=== PATIENT | male | born 1990 | race Caucasian/White ===

== ENCOUNTER 2021-09-06 23:44 | Emergency (ER) | payer OTHER, SELFPAY ==
[2021-09-06 23:51] VITALS: BP 129/93; PULSE 94; RESP 20; TEMP 36.9; O2SAT 98
--- NOTE | 2021-09-07 00:11 | ED.DENTAL ---
HPI - Dental/Oral General Chief complaint: Dental/Oral Stated complaint: Tooth Ache Source: patient Mode of arrival: ambulatory Limitations: no limitations History of Present Illness HPI Narrative: Patient was diagnosed with a dental abscess and started on penicillin VK, started his dose yesterday and currently is having some redness erythema around his right eye that is itchy, advised to discontinue the pen VK, currently there is no shortness of breath no audible wheezing no fever chills no nausea vomiting no abdominal pain no conjunctival erythema or drainage Complaint: tooth pain Onset (ago): day(s) Severity: mild Relieving factors: nothing Exacerbating factors: nothing Associated symptoms: gum swelling Related Data Home Medications Medication Instructions Recorded Confirmed hydrocodone-acetaminophen 1 tablet PO PRN PRN 09/06/21 09/06/21 ibuprofen 800 mg PO TID 09/06/21 09/06/21 metformin 500 mg PO BID 09/06/21 09/06/21 penicillin V potassium 500 mg PO QID 09/06/21 09/06/21 Allergies Allergy/AdvReac Type Severity Reaction Status Date / Time No Known Allergies Allergy Verified 09/06/21 23:51 Review of Systems Review of Systems: All systems reviewed & are unremarkable except as noted in HPI and below PMFSH Past Medical History Medical History Diabetes mellitus Exam Const: General: no acute distress Orientation/consciousness: patient oriented x3 HENMT: Head: normal to inspection Eyes: Conjunctivae: conjunctivae normal Pupils: Equal, round and reactive pupils present EOM: EOMs intact bilaterally Neck: Neck: normal visual inspection, no lymphadenopathy and no meningeal signs Chest: Chest palpation & inspection: normal inspection of the chest Resp: Effort & Inspection: normal respiratory effort Cardio: Rate: regular rate Rhythm: regular rhythm GI: GI Palp: Yes Soft to palpation Percussion: Yes normal to percussion Urinary Catheter: Urinary Catheter: patent and draining Back/Spine/Pelvis: Back: no CVA tenderness Skin: Other: redness and swelling around his right eye Neuro: General: patient oriented x3 and moves all extremities Extrem: General: normal to inspection and edema Psych: Mental Status: mental status grossly normal Affect: normal affect Course Course Emergency Course: IV started patient received a dose of IV clindamycin and IV Toradol. Vital Signs Vital signs: Vital Signs Temperature 36.9 C 09/06/21 23:51 Pulse Rate 94 09/06/21 23:51 Respiratory Rate 20 09/06/21 23:51 Blood Pressure 129/93 H 09/06/21 23:51 Pulse Oximetry 98 09/06/21 23:51 Temperature 36.9 C 09/06/21 23:51 Pulse Rate 94 09/06/21 23:51 Respiratory Rate 20 09/06/21 23:51 Blood Pressure 129/93 H 09/06/21 23:51 Pulse Oximetry 98 09/06/21 23:51 Critical Care Time Critical Care Time Critical Care Time: No Discharge Plan Discharge Clinical Impression: Dental abscess, Cellulitis and abscess of face Patient Disposition: Home, Self-Care Condition: Stable Instructions: Antibiotic Form, Dental Abscess (ED), Cellulitis (ED) Additional Instructions: advised to discontinue penicillin, take medicine as prescribed and follow up with primary if symptoms persist or worsen. Prescriptions: New clindamycin HCl 300 mg capsule 300 mg PO Q6H 10 Days Qty: 40 RF: 0 tramadol [Ultram] 50 mg tablet 50 mg PO Q6H PRN (Reason: pain) Qty: 20 RF: 0 No Action metformin 500 mg tablet 500 mg PO BID RF: 0 ibuprofen 800 mg tablet 800 mg PO TID RF: 0 hydrocodone-acetaminophen 5-325 mg tablet 1 tablet PO PRN PRN (Reason: Pain) RF: 0 penicillin V potassium 500 mg tablet 500 mg PO QID RF: 0 Follow-up/Referrals: Cintia,SARWAT Pan [Primary Care Provider] - Stand Alone Forms: Work/School Release IP Time of Disposition: 00:17
[2021-09-07] MEDS: KETOROLAC 30 MG/ML VIAL (*BKC) IV PUSH (00:25)
[2021-09-07] MEDS: CLINDAMYCIN 600 MG/D5W 50 ML 600 MG/50 ML PIGGYBACK 100 MG IVPB (00:25)
[2021-09-07 01:05] VITALS: BP 109/82; PULSE 79; RESP 18; TEMP 36.8; O2SAT 97
== END 2021-09-07 01:15 | disposition home or self-care (01) ==
PROVIDERS: Emergency Provider Emergency Medicine; PCP Physician Assistant
DX: K04.7 Periapical abscess without sinus (principal); L03.211 Cellulitis of face
CPT/HCPCS: 96365; 96375; 99284; J1885

== ENCOUNTER 2022-03-11 17:07 | Emergency (ER) | payer OTHER, SELFPAY ==
--- NOTE | ~2022-03-11 | XR_ITS ---
EXAMINATION: XR chest 1V portable Exam Date/Time: 03/11/2022 19:20 [employer] HISTORY: cough, fever Comparison: None available. RESULT: Lines, tubes, and devices: None. Lungs and pleura: Low lung volumes with crowding. Ill-defined hazy left lower lung opacities. Cardiomediastinal silhouette: Normal. Other: No acute osseous or upper abdominal finding. IMPRESSION: Left lower lung opacities may reflect atelectasis or consolidation. Reviewed, dictated and finalized at location K. [employer]
[2022-03-11 18:40] VITALS: BP 119/73; PULSE 109; RESP 20; TEMP 38.8; O2SAT 98
[2022-03-11] MEDS: IBUPROFEN 400 MG TABLET PO (18:53)
--- NOTE | 2022-03-11 19:17 | ED.GENADULT ---
HPI - General Adult General Chief complaint: Upper Respiratory Infection Stated complaint: fever Time Seen by Provider: 03/11/22 18:44 History of Present Illness HPI narrative: Adeel is a 32M with a PMH of diabetes that presented to the ED with a sore throat, cough, fevers, chills, aches and some dyspnea. It started this morning and has become worse. He reportedly has a co-oworker with COVID. There is no CP, vomiting or lightheadedness. Related Data Allergies Allergy/AdvReac Type Severity Reaction Status Date / Time No Known Allergies Allergy Verified 03/11/22 18:51 Review of Systems Review of Systems: All systems reviewed & are unremarkable except as noted in HPI and below PMFSH Past Medical History Medical History Diabetes mellitus Exam Const: General: healthy appearing Nutritional Appearance: well nourished Orientation/consciousness: patient oriented x3 HENMT: Head: normal to inspection Ears: external ears normal Face/Nose/Sinus: Normal external nose present Eyes: Conjunctivae: conjunctivae normal Pupils: Equal, round and reactive pupils present Neck: Neck: normal visual inspection Chest: Chest palpation & inspection: normal inspection of the chest Resp: Effort & Inspection: normal respiratory effort Other: Diffuse wheezing. Cough present on exam. Cardio: Rate: regular rate Rhythm: regular rhythm GI: Inspection: non-distended GI Palp: Yes Soft to palpation and No Tenderness to palpation present (GI) Skin: General skin exam: normal color Neuro: General: patient oriented x3 and moves all extremities Cranial nerves: Yes Nystagmus not present Extrem: General: normal to inspection Psych: Mental Status: mental status grossly normal Affect: normal affect Course Course Emergency Course: EXAMINATION:? XR chest 1V portable Exam Date/Time:? 03/11/2022 19:20 [employer] HISTORY: cough, fever ? Comparison:? None available. RESULT: Lines, tubes, and devices:? None. Lungs and pleura:? Low lung volumes with crowding. Ill-defined hazy left lower lung opacities. Cardiomediastinal silhouette:? Normal. Other:? No acute osseous or upper abdominal finding. IMPRESSION: Left lower lung opacities may reflect atelectasis or consolidation. Vital Signs Vital signs: Vital Signs Temperature 102 F H 03/11/22 18:40 Pulse Rate 109 H 03/11/22 18:40 Respiratory Rate 20 03/11/22 18:40 Blood Pressure 119/73 03/11/22 18:40 Pulse Oximetry 98 03/11/22 18:40 Oxygen Delivery Room Air 03/11/22 18:40 Temperature 102 F H 03/11/22 18:40 Pulse Rate 109 H 03/11/22 18:40 Respiratory Rate 20 03/11/22 18:40 Blood Pressure 119/73 03/11/22 18:40 Pulse Oximetry 98 03/11/22 18:40 Oxygen Delivery Room Air 03/11/22 18:40 Medical Decision Making Vital Signs Vital Signs: Vital Signs Temperature 102 F H 03/11/22 18:40 Pulse Rate 109 H 03/11/22 18:40 Respiratory Rate 20 03/11/22 18:40 Blood Pressure 119/73 03/11/22 18:40 Pulse Oximetry 98 03/11/22 18:40 Oxygen Delivery Room Air 03/11/22 18:40 Temperature 102 F H 03/11/22 18:40 Pulse Rate 109 H 03/11/22 18:40 Respiratory Rate 20 03/11/22 18:40 Blood Pressure 119/73 03/11/22 18:40 Pulse Oximetry 98 03/11/22 18:40 Oxygen Delivery Room Air 03/11/22 18:40 Lab Data Labs: Lab Results 03/11/22 03/11/22 Range/Units 19:23 19:23 Influenza A (RT-PCR) Positive (Negative) Influenza B (RT-PCR) Negative (Negative) RSV (RT-PCR) Negative (Negative) SARS-CoV-2 RNA (RT-PCR) Negative (Negative) Group A Strep (PCR) Negative (Negative) Discharge Plan Discharge Clinical Impression: Pneumonia, Influenza A Patient Disposition: Home, Self-Care Condition: Stable Prescriptions: New levofloxacin 750 mg tablet 750 mg PO DAILY Qty: 6 0RF oseltamivir [Tamiflu] 75 mg capsule 75 mg PO Q12H 5 Days Qty: 10
[2022-03-11 19:24] LABS: Strep Group A RT-PCR Negative (Negative)
[2022-03-11 19:29] LABS: Influenza A QL RT-PCR Positive (Negative); Influenza B QL RT-PCR Negative (Negative); RSV RNA, RT-PCR Negative (Negative); SARS-CoV-2 RNA PCR Negative (Negative)
[2022-03-11] MEDS: levoFLOXacin TAB 500 MG, levoFLOXacin TAB 250 MG 750 MG PO (20:25)
[2022-03-11] MEDS: OSELTAMIVIR PHOSPHATE 75 MG CAPSULE PO (20:28)
[2022-03-11 20:36] VITALS: BP 127/76; PULSE 105; RESP 18; TEMP 37.8; O2SAT 100
== END 2022-03-11 20:40 | disposition home or self-care (01) ==
PROVIDERS: Emergency Provider Family Medicine; PCP Physician Assistant
DX: J18.9 Pneumonia, unspecified organism (principal); J11.1 Influenza due to unidentified influenza virus with other respiratory manifestations; Z20.822 Contact with and (suspected) exposure to COVID-19
CPT/HCPCS: 71045; 87502; 87634; 87651; 99283; A9270; U0003; U0005

== ENCOUNTER 2022-08-03 08:20 | Emergency (ER) | payer OTHER, SELFPAY ==
--- NOTE | ~2022-08-03 | XR_ITS ---
EXAMINATION: XR ankle RT min 3V DATE: 08/03/2022 08:36 INDICATION: Medial right ankle pain. TECHNIQUE: Anteroposterior, oblique, mortise, and lateral views of the right ankle were obtained. COMPARISON: None. FINDINGS: Small chronic appearing ossicle at the tip of the lateral malleolus without associated soft tissue sw elling most likely either an old avulsion fracture or heterotopic ossicle related to chronic lateral ankle sprain. No other lesions suspicious for acute fracture identified. Bone alignment is normal. Sobia int spaces are normal. Soft tissues are unremarkable with no ankle joint effusion. IMPRESSION: 1. No right ankle joint effusion or acute osseous abnormality. 2. Likely chronic avulsion fracture fragment versus heterotopic ossification related to chronic later al ankle sprain at the tip of the lateral malleolus. Reviewed, dictated and finalized at location A. IMPRESSION: 1. No right ankle joint effusion or acute osseous abnormality. 2. Likely chronic avulsion fracture fragment versus heterotopic ossification re lated to chronic lateral ankle sprain at the tip of the lateral malleolus.
[2022-08-03 08:20] VITALS: BP 107/79; PULSE 70; PULSE 71; RESP 16; TEMP 36.6; O2SAT 99
--- NOTE | 2022-08-03 08:27 | ED.GENADULT ---
HPI - General Adult General Chief complaint: Extremity Injury, Lower Stated complaint: right ankle pain Time Seen by Provider: 08/03/22 08:26 History of Present Illness HPI narrative: Adeel is a 32M with a PMH of DMII that presented to the ED with right ankle pain that started today. No reported injury, fall or trauma. It is worse with ambulating and better with rest. Related Data Allergies Allergy/AdvReac Type Severity Reaction Status Date / Time No Known Allergies Allergy Verified 08/03/22 08:29 Review of Systems Review of Systems: All systems reviewed & are unremarkable except as noted in HPI and below [facility] Past Medical History Medical History Diabetes mellitus Exam Const: General: healthy appearing, no acute distress and alert; No confusion Nutritional Appearance: well nourished Orientation/consciousness: patient oriented x3 HENMT: Head: normal to inspection Ears: external ears normal Face/Nose/Sinus: Normal external nose present Eyes: Conjunctivae: conjunctivae normal Pupils: Equal, round and reactive pupils present Neck: Neck: normal visual inspection Chest: Chest palpation & inspection: normal inspection of the chest Resp: Effort & Inspection: normal respiratory effort Auscultation: clear to auscultation bilaterally Cardio: Rate: regular rate Rhythm: regular rhythm Skin: General skin exam: normal color Rashes: no rashes Neuro: General: patient oriented x3 and moves all extremities Extrem: General: normal to inspection Psych: Mental Status: mental status grossly normal Course Course Emergency Course: EXAMINATION: XR ankle RT min 3V DATE: 08/03/2022 08:36 INDICATION: Medial right ankle pain. TECHNIQUE: Anteroposterior, oblique, mortise, and lateral views of the right ankle were obtained. COMPARISON: None. FINDINGS: Small chronic appearing ossicle at the tip of the lateral malleolus without associated soft tissue swelling most likely either an old avulsion fracture or heterotopic ossicle related to chronic lateral ankle sprain. No other lesions suspicious for acute fracture identified. Bone alignment is normal. Joint spaces are normal. Soft tissues are unremarkable with no ankle joint effusion. IMPRESSION: 1. No right ankle joint effusion or acute osseous abnormality. 2. Likely chronic avulsion fracture fragment versus heterotopic ossification related to chronic lateral ankle sprain at the tip of the lateral malleolus. He was given toradol for the pain. He was instructed to follow up with his regular doctor on his chronic fracture/sprain Vital Signs Vital signs: Vital Signs Temperature 97.8 F 08/03/22 08:20 Pulse Rate 70 08/03/22 08:20 Respiratory Rate 16 08/03/22 08:20 Blood Pressure 107/79 08/03/22 08:20 Pulse Oximetry 99 08/03/22 08:20 Oxygen Delivery Room Air 08/03/22 08:20 Temperature 97.8 F 08/03/22 08:20 Pulse Rate 71 08/03/22 08:20 Respiratory Rate 16 08/03/22 08:20 Blood Pressure 107/79 08/03/22 08:20 Pulse Oximetry 99 08/03/22 08:20 Oxygen Delivery Room Air 08/03/22 08:20 Medical Decision Making Vital Signs Vital Signs: Vital Signs Temperature 97.8 F 08/03/22 08:20 Pulse Rate 70 08/03/22 08:20 Respiratory Rate 16 08/03/22 08:20 Blood Pressure 107/79 08/03/22 08:20 Pulse Oximetry 99 08/03/22 08:20 Oxygen Delivery Room Air 08/03/22 08:20 Temperature 97.8 F 08/03/22 08:20 Pulse Rate 71 08/03/22 08:20 Respiratory Rate 16 08/03/22 08:20 Blood Pressure 107/79 08/03/22 08:20 Pulse Oximetry 99 08/03/22 08:20 Oxygen Delivery Room Air 08/03/22 08:20 Discharge Plan Discharge Clinical Impression: Acute right ankle pain Patient Disposition: Home, Self-Care Condition: Stable Instructions: Swollen Joint (ED) Additional Instructions: Please make a follow up appointment with your regular doctor for furt
[2022-08-03] MEDS: KETOROLAC 30 MG/ML VIAL (*BKC) IM (08:45)
== END 2022-08-03 09:07 | disposition home or self-care (01) ==
LOC: CHSED 08:51
PROVIDERS: Emergency Provider Family Medicine; PCP Physician Assistant
DX: M25.571 Pain in right ankle and joints of right foot (principal); E11.9 Type 2 diabetes mellitus without complications
CPT/HCPCS: 73610; 96372; 99283; J1885

== ENCOUNTER 2022-09-09 07:18 | Emergency (ER) | payer OTHER, SELFPAY ==
[2022-09-09 07:18] VITALS: BP 127/85; PULSE 60; RESP 16; TEMP 36.8; O2SAT 98
--- NOTE | 2022-09-09 07:30 | ED.URI ---
HPI - URI/Sore Throat General Chief Complaint: Upper Respiratory Infection Stated Complaint: Headache/ Sinus congestion Time Seen by Provider: 09/09/22 07:29 Source: patient Mode of arrival: ambulatory Limitations: no limitations History of Present Illness HPI Narrative: 32-year-old male with a prior history of diabetes mellitus, now resolved presents to the ER with a 3 day history of -- nasal congestion with anterior nasal mucopurulent discharge. -- bilateral sinus pain -- Headache without any nausea vomiting or focal neuro deficits. no history of seasonal allergies. MD elicited complaint: nasal congestion and sinus pain Onset (ago): day(s) ( Started 3 days) Consistency: constant Severity: mild Description of mucous: purulent Able to tolerate fluids by mouth: Yes Exacerbating factors: nothing Relieving factors: nothing Associated symptoms: denies other symptoms Treatments prior to arrival: none Related Data Allergies Allergy/AdvReac Type Severity Reaction Status Date / Time No Known Allergies Allergy Verified 09/09/22 07:31 Review of Systems Review of Systems: All systems reviewed & are unremarkable except as noted in HPI and below Constitutional: Constitutional: Reports as per HPI and Reports no additional constitutional complaints Eyes: Eyes: Reports as per HPI and Reports no additional eye complaints ENT: Reports system reviewed and no additional complaints, except as documented, Reports headache(s), Reports nasal congestion, Reports nasal discharge, Reports nasal obstruction, Reports post nasal drip, Reports sinus pain and Reports sinus pressure Cardiovascular: Cardiovascular: Reports as per HPI and Reports no additional cardiovascular complaints Respiratory: Respiratory: Reports as per HPI and Reports no additional respiratory complaints Gastrointestinal: Gastrointestinal: Reports as per HPI and Reports no additional gastrointestinal complaints Genitourinary: Genitourinary: Reports no additional male genitourinary complaints and Reports as per HPI Musculoskeletal: Musculoskeletal: Reports no additional musculoskeletal complaints and Reports as per HPI Integumentary/Breasts: Skin/Breast: Reports system reviewed and no additional complaints, except as docu and Reports as per HPI Neurologic: Reports system reviewed and no additional complaints, except as documented and Reports as per HPI Psychiatric: Psychiatric: Reports no additional psychiatric complaints and Reports as per HPI Endocrine: Endocrine: Reports no additional endocrine complaints and Reports as per HPI Hematologic/Lymphatic: Hematologic/Lymphatic: Reports no additional hematologic/lymphatic complaints and Reports as per HPI Allergic/Immunologic: Allergic/Immunologic: Reports no additional allergic/immunologic complaints and Reports as per HPI PMFSH Past Medical History Medical History Diabetes mellitus Exam Const: General: cooperative, healthy appearing, comfortable and no acute distress HENMT: Head: normal to inspection, No palpable skull fracture present and normocephalic Ears: hearing grossly normal bilaterally, external ears normal and TM's normal bilaterally Face/Nose/Sinus: Normal external nose present and Normal nares present Face and sinus: normal facial exam and sinuses nontender Mouth: Yes Normal oral and palatal mucosa present Throat: posterior oropharynx normal ( Pharyngeal erythema) Eyes: General: appearance normal, both eyes and all related structures Visual Martino: normal visual martino by confrontation Alignment and Position: alignment normal Periorbital: periorbital findings normal Neck: Neck: normal visual inspection, full ROM, no lymphadenopathy and no meningeal signs Chest: Chest palpation & inspection: normal inspection of the chest Resp: Effort & Inspection: normal respiratory effort Auscultation: clear to auscultation bilaterally Cardio: Jugular ve
[2022-09-17 14:37] LABS: Glucose Point of Care 100 mg/dl (65-105)
== END 2022-09-09 08:21 | disposition home or self-care (01) ==
LOC: CHSED 08:07
PROVIDERS: Emergency Provider Internal Medicine Critical Care Medicine; PCP Physician Assistant
DX: J32.9 Chronic sinusitis, unspecified (principal); J06.9 Acute upper respiratory infection, unspecified; E11.9 Type 2 diabetes mellitus without complications
CPT/HCPCS: 82948; 99283

== ENCOUNTER 2023-08-17 17:23 | Emergency (ER) | payer OTHER, SELFPAY ==
[2023-08-17] VITALS (15 sets, daily range): BP systolic 99–137; BP diastolic 67–91; PULSE 63–87; RESP 10–19; TEMP 36.6; O2SAT 94–100
--- NOTE | 2023-08-17 17:27 | ED.NAVMDI ---
HPI - Nausea/Vomiting/Diarrhea General Chief complaint: Overdose Stated complaint: NAUSEA/VOMITING Time Seen by Provider: 08/17/23 17:27 History of Present Illness HPI Narrative: Patient is a 33 year old male with history of DM, polysubstance abuse here with nausea and vomiting after suspected overdose. Patient notes that he was feeling normal and well this morning, thought he was smoking meth about 3 hours ago. Next thing he knew he woke up to police surrounding him. He denies any trauma. He notes some mild abdominal pain, no chest pain, does not believe he received CPR. He notes daily meth use, occasional opiate use, denies history of opiate withdrawal. Per EMS, police responded to their house earlier today for concern for overdose, police gave narcan and he woke up, yelled at police and they left the scene without EMS being called. They were then called back to scene for nausea and vomiting and patient requested to be transported into the ER for evaluation. He does note history of DM, does not currently take any medications. Related Data Allergies Allergy/AdvReac Type Severity Reaction Status Date / Time No Known Allergies Allergy Verified 08/17/23 17:39 Review of Systems Review of Systems: All systems reviewed & are unremarkable except as noted in HPI and below PMFSH Past Medical History Medical History Diabetes mellitus Exam Narrative: GENERAL: Disheveled, drowsy but awakes easily to voice and answers questions. HEAD: Normocephalic, atraumatic. EYES: PERRLA, 2mm in size and EOMI. ENT: Nares clear. Mucous membranes moist. NECK: Supple. CHEST: Clear to auscultation. No respiratory distress. HEART: Regular rate and rhythm. Normal peripheral pulses. ABDOMEN: Soft, nontender, nondistended. EXTREMITIES: Normal range of motion. No edema. SKIN: Warm, dry, no rash. NEURO: No focal deficits. Alert and oriented x3. PSYCH: Normal mood and affect. Course Course Emergency Course: Chart review performed. Patient appears to have been here about a year ago for nasal congestion and sinus pain. History of DM, polysubstance use. Patient seen evaluated, he is drowsy with small pupils however protecting his airway without difficulty and able to maintain conversations. At this point I did not feel that there is an indication for another dose of Narcan. Will continue to monitor his respiratory status and give more Narcan as needed. Suspect he likely had a opiate overdose today, per patient this was accidental and he thought he was using a different substance. He does have a history of diabetes and is not currently taking great care of his health and does not take any medications. Will do lab work to evaluate for possible DKA or other cause of his nausea and vomiting. Most likely this is due to a component of opiate withdrawal. Lab work and imaging reviewed. WBC of 12.4, he does have a pH of 7.2 with a PCO2 of 61, suspect he has been retaining since overdose, will trend this and do a repeat to ensure it is improving. Creatinine 1.4, no prior for comparison. Lipase normal. Will reevaluate. Patient much more alert, pupils improving in size, symptoms improved per patient. Will repeat venous gas. Anticipate discharge. Repeat blood gas has remained stable, pH slightly improved. He has not had any issues with desaturating here in our department. He has been watched for 3.5 hours here in the department and more than 4 hours since receiving narcan. At this point he is stable for discharge and feels comfortable with going home. He does not appear to be in DKA as he has no anion gap elevation and his blood glucose is minimally elevated. Advise continued hydration given potential MARTY on our lab work here today although we do not have any comparison levels. He should follow closely with his PCP. He should also refrain from continued substance use. Provided with prescription for narcan. The resu
[2023-08-17 17:38] LABS: Glucose Point of Care 210 mg/dl (65-105)
--- NOTE | 2023-08-17 17:45 | ECG_ITS ---
SEE SCANNED COPY FOR CONFIRMED REPORT MTDD
[2023-08-17] MEDS: LACTATED RINGERS 1,000 ML 999 ML IV CONT (17:50)
[2023-08-17] MEDS: ONDANSETRON INJ 4 MG/2 ML VIAL IV PUSH (17:50)
[2023-08-17 17:54] LABS: Basophils Absolute Auto 0.07 K/mm3 (0.00-0.10); Basophils Percent Auto 0.6 % (0.0-1.0); Eosinophils Absolute Auto 0.26 K/mm3 (0.02-0.50); Eosinophils Percent Auto 2.1 % (1.0-6.0); Hematocrit 48.6 % (40.0-54.0); Hemoglobin 16.1 g/dL (14.0-18.0); Immature Granulocyte Absolute 0.09 K/mm3 (0.00-0.00); Immature Granulocyte Percent A 0.7 % (0.0-0.0); Lymphocytes Absolute Auto 1.48 K/mm3 (1.10-4.50); Mean Corpuscular HGB Conc 33.1 g/dL (32-36); Mean Corpuscular Hemoglobin 29.5 pg (27.0-31.0); Mean Corpuscular Volume 89.2 fL (78.0-102.0); Mean Platelet Volume 10.8 fl (8.7-11.0); Monocytes Absolute Auto 0.41 K/mm3 (0.10-0.90); Monocytes Percent Auto 3.3 % (2.0-11.0); Neutrophils Absolute Auto 10.06 K/mm3 (1.70-7.20); Neutrophils Percent Auto 81.3 % (50.0-70.0); Platelet Count Result 281 K/mm3 (150-420); Red Blood Count 5.45 M/mm3 (4.70-6.10); Red Cell Distribution Width 13.4 % (11.6-14.4); White Blood Count 12.4 K/mm3 (4.8-10.8)
[2023-08-17 17:55] LABS: HCO3 VBG 24.1 mEq/l (24.0-30.0); PCO2 VBG 61.5 mmHg (42.0-48.0); PO2 VBG 30.2 mmHg (35.0-45.0); pH VBG 7.21 (7.33-7.43)
[2023-08-17 17:56] LABS: Device ROOM AIR
[2023-08-17 18:19] LABS: Alanine Aminotransferase 48 U/L (16-63); Albumin Level 4.1 g/dL (3.4-5.0); Alkaline Phosphatase 80 U/L (46-116); Anion Gap 9 mmol/L (4-12); Aspartate Amino Transferase 47 U/L (15-37); Bilirubin,Total 0.4 mg/dL (0.00-1.00); Blood Urea Nitrogen 10 mg/dL (7-18); Calcium 9.2 mg/dL (8.5-10.1); Carbon Dioxide 32 mmol/L (21-32); Chloride 103 mmol/L (98-108); Estimated Glomerular Filt Rate 58; Glucose 205 mg/dL (70-99); Lipase 39 U/L (16-77); Magnesium 2.1 mg/dL (1.8-2.4); Osmolality Calculated 303 mOsm/kg (285-295); Potassium 3.9 mmol/L (3.5-5.1); Sodium 144 mmol/L (136-145); Total Protein 7.5 g/dL (6.4-8.2)
--- NOTE | 2023-08-17 18:49 | PC.NURSE ---
HAS ARRIVED AT BEDSIDE. PT WAKES AND IS SPEAKING WITH HER AT THIS TIME. NAD NOTED. VSS. PT IS AWAITING RESULTS AT THIS TIME. WILL CONTINUE TO MONITOR.
--- NOTE | 2023-08-17 19:17 | PC.NURSE ---
PT AND ARE SLEEPING ON THE STRETCHER. VSS PER MONITOR. PT AROUSES TO VERBAL STIMULI. NAD NOTED. REPORT TO JOVANI MARTINEZ
[2023-08-17 19:57] LABS: HCO3 VBG 27.6 mEq/l (24.0-30.0); PCO2 VBG 62.7 mmHg (42.0-48.0); PO2 VBG 36.1 mmHg (35.0-45.0); pH VBG 7.26 (7.33-7.43)
[2023-08-17 19:58] LABS: Device ROOM AIR
== END 2023-08-17 21:20 | disposition home or self-care (01) ==
PROVIDERS: Emergency Provider Student in an Organized Health Care Education/Training Program; PCP Physician Assistant
DX: T40.601A Poisoning by unspecified narcotics, accidental (unintentional), initial encounter (principal); F19.90 Other psychoactive substance use, unspecified, uncomplicated; N17.9 Acute kidney failure, unspecified; R11.2 Nausea with vomiting, unspecified; E11.9 Type 2 diabetes mellitus without complications
CPT/HCPCS: 36415; 80053; 82803; 82948; 83690; 83735; 85025; 93005; 96361; 96374; 99284; J2405; J7120

== ENCOUNTER 2024-01-16 18:21 | Emergency (ER) | payer OTHER, SELFPAY ==
[2024-01-16 18:25] VITALS: BP 119/77; PULSE 93; RESP 18; TEMP 36.4; O2SAT 99
--- NOTE | 2024-01-16 18:35 | PC.NURSE ---
Dr Up at the bedside
--- NOTE | 2024-01-16 18:43 | ED.GENADULT ---
HPI - General Adult General Chief complaint: Headache Stated complaint: headache Time Seen by Provider: 01/16/24 18:40 Source: patient Mode of arrival: ambulatory Limitations: no limitations History of Present Illness HPI narrative: 33-year-old white male complains of headache and runny nose since last night took some ibuprofen then went to bed and slept till 530 today had a Peter butter jelly sandwich before he came otherwise he is eating drinking voiding and stooling fine no weakness numbness neck pain or pain elsewhere no sore throat swelling lumps or bumps. He has had a cough productive of a greenish sputum denies any shortness of breath. Denies any fever rash swelling or any other complaints. Is on disability for fall from a roof in 2017 says he can not stand for long periods of time. Rates his headache as 8/10. Did not taking any for pain today. His roommate is well nobody sick around him. Related Data Allergies Allergy/AdvReac Type Severity Reaction Status Date / Time No Known Allergies Allergy Verified 08/17/23 17:39 Review of Systems Review of Systems: All systems reviewed & are unremarkable except as noted in HPI and below PMFSH Past Medical History Medical History Diabetes mellitus Social History Social History Substance use type: marijuana, opiates and methamphetamine Comments Disability for fall from roof in 2017 bilateral hip pain chronic Exam Narrative: White male patient with no apparent distress.? Head normocephalic, atraumatic.? Eyes conjunctiva pink sclera nonicteric.? Extraocular movements are intact.? Ears externally normal.? Oropharynx is clear with moist mucous membranes without exudates.? Neck is supple nontender no lymphadenopathy.? Back is nontender.? Lungs are clear.? Heart is regular rate and rhythm without murmurs gallops or rubs.? Chest wall nontender. Abdomen is soft and nontender no hepatosplenomegaly or masses no CVA tenderness no abdominal bruits.? Extremities no cyanosis clubbing or edema.? Skin is warm and dry without rashes or lesions.? Neurological patient is alert and oriented x4.? Motor and sensory grossly intact.? Gait is normal. Course Vital Signs Vital signs: Vital Signs Temperature 36.4 C L 01/16/24 18:25 Pulse Rate 93 01/16/24 18:25 Respiratory Rate 18 01/16/24 18:25 Blood Pressure 119/77 01/16/24 18:25 Pulse Oximetry 99 01/16/24 18:25 Oxygen Delivery Room Air 01/16/24 18:25 Temperature 36.4 C L 01/16/24 18:25 Pulse Rate 93 01/16/24 18:25 Respiratory Rate 18 01/16/24 18:25 Blood Pressure 119/77 01/16/24 18:25 Pulse Oximetry 99 01/16/24 18:25 Oxygen Delivery Room Air 01/16/24 18:25 Medical Decision Making MDM Narrative Medical decision making narrative: ? Patient placed in room: 1 ? History and physical was performed. Independent Historian: patient External Source Review: Differential Dx includes but not limited to: pneumonia bronchitis viral URI Medications were Reviewed: home meds reviewed Medications given: Toradol 30 mg IM, doxycycline 100 mg Independently Interpreted by me: shared decision making evaluation was discussed all questions were asked and answered patient agreed with the plan. Social Situation Impacting Patients Care: DISCHARGE DIAGNOSIS: acute bronchitis, headache DISPOSITION: discharge home CONDITION AT DISCHARGE: stable Vital Signs Vital Signs: Vital Signs Temperature 36.4 C L 01/16/24 18:25 Pulse Rate 93 01/16/24 18:25 Respiratory Rate 18 01/16/24 18:25 Blood Pressure 119/77 01/16/24 18:25 Pulse Oximetry 99 01/16/24 18:25 Oxygen Delivery Room Air 01/16/24 18:25 Temperature 36.4 C L 01/16/24 18:25 Pulse Rate 93 01/16/24 18:25 Respiratory Rate 18 01/16/24 18:25 Blood Pressure 119/77 01/16/24 18:25 Pu
[2024-01-16] MEDS: KETOROLAC 30 MG/ML VIAL (*BKC) IM (18:54)
[2024-01-16] MEDS: DOXYCYCLINE HYCLATE 100 MG TABLET PO (18:54)
== END 2024-01-16 19:07 | disposition home or self-care (01) ==
PROVIDERS: Emergency Provider Emergency Medicine; PCP Physician Assistant
DX: J20.9 Acute bronchitis, unspecified (principal); R51.9 Headache, unspecified; E11.9 Type 2 diabetes mellitus without complications
CPT/HCPCS: 96372; 99283; A9270; J1885

== ENCOUNTER 2024-03-25 22:19 | Emergency (ER) | payer OTHER, SELFPAY ==
[2024-03-25] VITALS (11 sets, daily range): BP systolic 119–148; BP diastolic 89–108; PULSE 87–108; RESP 12–27; TEMP 36.5; O2SAT 99–100
--- NOTE | ~2024-03-25 | XR_ITS ---
EXAMINATION: XR chest 1V portable DATE: 03/25/2024 22:35 INDICATION: 2 days of sternal chest pain TECHNIQUE: frontal view of the chest was obtained. COMPARISON: Chest radiograph dated 03/11/2022 FINDINGS: The lungs are clear with no focal airspace opacities, pulmonary edema, pleural effusion or pneumothor ax. The cardiomediastinal silhouette is normal. Visualized bones and soft tissues are unremarkable. IMPRESSION: 1. No acute cardiopulmonary disease. Reviewed, dictated and finalized at location [facility]
--- NOTE | 2024-03-25 20:10 | ECG_ITS ---
Test Date: 2024-03-25 22:16:52 Measurements Intervals [place] Rate: 88 P: 71 WI: 124 QRS: 64 QRSD: 108 T: 58 QT: 353 QTc: 427 Interpretive Statements SINUS RHYTHM WITH SINUS ARRHYTHMIA PEAKED T WAVES- CONSIDER HYPERKALEMIA BASELINE ARTIFACT- I, II, AVR, AVL, AVF ABNORMAL ECG No previous ECG available for comparison Electronically Signed On 03-27-2024 06:27:28 [employer] by Dalton Bazzi D.O.
--- NOTE | 2024-03-25 22:20 | ED.CHESTPAIN ---
HPI - Chest Pain General Chief Complaint: Chest Pain Stated Complaint: chest pain Time Seen by Provider: 03/25/24 22:20 Source: patient Mode of arrival: ambulatory Limitations: no limitations History of Present Illness HPI narrative: 34-year-old male with a prior history of smoking,diabetes mellitus, polysubstance abuse presents to the ED with a 2 day history of -- substernal chest pain which radiates to the left arm and shoulder. Pain is intermittent and lasts 2-3 minutes and resolved spontaneously. Currently pain free. Short while ago he had a pain intensity of 8/10. No nausea/ vomiting. No diaphoresis. No shortness of breath. He smoked meth amphetamine 2 days ago. MD complaint: chest pain Onset (ago): day(s) ( Two days) Timing of current episode: episodic Prior episodes: Yes Onset: during rest Pain location: substernal Pain radiation: left arm Pain scale (0-10): 8 Quality: aching Relieving factors: nothing Exacerbating factors: nothing Risk Factors Coronary artery disease risk factors: diabetes and smoking history Related Data Allergies Allergy/AdvReac Type Severity Reaction Status Date / Time No Known Allergies Allergy Verified 03/25/24 22:24 Review of Systems Review of Systems: All systems reviewed & are unremarkable except as noted in HPI and below Constitutional: Constitutional: Reports as per HPI and Reports no additional constitutional complaints Eyes: Eyes: Reports as per HPI and Reports no additional eye complaints ENT: Reports system reviewed and no additional complaints, except as documented and Reports as per HPI Cardiovascular: Cardiovascular: Reports as per HPI, Reports no additional cardiovascular complaints and Reports chest pain Respiratory: Respiratory: Reports as per HPI and Reports no additional respiratory complaints Gastrointestinal: Gastrointestinal: Reports as per HPI and Reports no additional gastrointestinal complaints Genitourinary: Genitourinary: Reports no additional male genitourinary complaints and Reports as per HPI Musculoskeletal: Musculoskeletal: Reports no additional musculoskeletal complaints and Reports as per HPI Integumentary/Breasts: Skin/Breast: Reports system reviewed and no additional complaints, except as docu and Reports as per HPI Neurologic: Reports system reviewed and no additional complaints, except as documented and Reports as per HPI Psychiatric: Psychiatric: Reports no additional psychiatric complaints and Reports as per HPI Endocrine: Endocrine: Reports no additional endocrine complaints and Reports as per HPI Hematologic/Lymphatic: Hematologic/Lymphatic: Reports no additional hematologic/lymphatic complaints and Reports as per HPI Allergic/Immunologic: Allergic/Immunologic: Reports no additional allergic/immunologic complaints and Reports as per HPI [facility] Past Medical History Medical History Diabetes mellitus Social History Social History Substance use type: marijuana, opiates and methamphetamine Exam Narrative: blood pressure 135/98. Oxygen saturation of 100% on room air with a respiratory rate to 14 and puls Const: General: no acute distress Orientation/consciousness: patient oriented x3 Limitations: no limitations HENMT: Head: normal to inspection Ears: external ears normal Face/Nose/Sinus: Normal external nose present Face and sinus: normal facial exam Mouth: Yes Normal oral and palatal mucosa present Throat: posterior oropharynx normal Eyes: Conjunctivae: conjunctivae normal Pupils: Equal, round and reactive pupils present EOM: EOMs intact bilaterally Direct Ophthalmoscopy: no photophobia Neck: Neck: normal visual inspection, no lymphadenopathy and no meningeal signs Chest: Chest palpation & inspection: normal inspection of the chest Resp: Effort & Inspection: normal respiratory effort Auscultation: clear to auscultation bilaterally Cardio: Rate: regular rate Rhythm: regular rhythm GI: Auscultation: normal bowel sounds Other: Abdomen is soft and nontender. No rigidity / rebound. : General: Yes no CVA tenderness Back/Spine/Pelvis: Back: no CVA tenderness Skin: General skin exam: normal color Rashes: no rashes Wounds: no wounds Neuro: General: patient oriented x3, moves all extremities, no meningeal signs, no focal motor deficits and CN's II-XI intact bilaterally Cranial nerves: Yes Nystagmus not present Speech: normal speech Gait exam (Neuro): Normal gait present Extrem: General: normal to inspection and no clubbing, cyanosis or edema Psych: Mental Status: mental status grossly normal Affect: normal affect Attitude: cooperative Course Course Emergency Course: anterior chest pain-- 2 days duration. Pattern of pain is 2-3 minutes with spontaneous resolution occurring at rest. Troponins are negative. EKG does not show any acute findings. Vital Signs Vital signs: Vital Signs Pulse Rate 95 03/25/24 22:19 Oxygen Delivery Room Air 03/25/24 22:19 Temperature 36.5 C 03/25/24 22:23 Pulse Rate 87 03/25/24 23:16 Respiratory Rate 12 03/25/24 23:16 Blood Pressure 148/108 H 03/25/24 23:16 Pulse Oximetry 100 03/25/24 23:16 Oxygen Delivery Room Air 03/25/24 22:23 MDM - Chest Pain MDM Narrative Medical decision making narrative: Chest pain Differential Diagnosis Differential diagnosis: Likely pneumothorax Lab Data 03/25/24 22:27 03/25/24 22:27 Labs: Lab Results 03/25/24 Range/Units 22:27 WBC 13.9 H (4.8-10.8) K/mm3 RBC 5.54 (4.70-6.10) M/mm3 Hgb 16.7 (14.0-18.0) g/dL Hct 48.3 (40.0-54.0) % MCV 87.2 (78.0-102.0) fL MCH 30.1 (27.0-31.0) pg MCHC 34.6 (32-36) g/dL RDW 12.9 (11.6-14.4) % Plt Count 296 (150-420) K/mm3 MPV 11.3 H (8.7-11.0) fl Immature Gran % (Auto) 0.4 H (0.0-0.0) % Neut % (Auto) 69.3 (50.0-70.0) % Lymph % (Auto) 23.9 (18.0-42.0) % [place] % (Auto) 4.7 (2.0-11.0) % Eos % (Auto) 1.1 (1.0-6.0) % Baso % (Auto) 0.6 (0.0-1.0) % Lymph # (Auto) 3.33 (1.10-4.50) K/mm3 [place] # (Auto) 0.66 (0.10-0.90) K/mm3 Eos # (Auto) 0.15 (0.02-0.50) K/mm3 Baso # (Auto) 0.09 (0.00-0.10) K/mm3 Abs Immat Gran (auto) 0.06 H (0.00-0.00) K/mm3 Absolute Neuts (auto) 9.64 H (1.70-7.20) K/mm3 Absolute Nucleated RBC 0.00 (0.00-0.00) K/mm3 Nucleated RBC % 0.0 (0-0.0) % Sodium 142 (136-145) mmol/L Potassium 3.2 L (3.5-5.1) mmol/L Chloride 101 (98-108) mmol/L Carbon Dioxide 31 (21-32) mmol/L Anion Gap 10 (4-12) mmol/L BUN 16 (7-18) mg/dL Creatinine 1.11 (0.70-1.30) mg/dL Estim Creat Clear Calc 78 ml/min Estimated GFR > 60 (59 - ) Glucose 99 (70-99) mg/dL Calculated Osmolality 295 (285-295) mOsm/kg Lactic Acid 1.1 (0.4-2.0) mmol/L Calcium 9.6 (8.5-10.1) mg/dL Total Bilirubin 0.6 (0.00-1.00) mg/dL AST 16 (15-37) U/L ALT 27 (16-63) U/L Alkaline Phosphatase 83 (46-116) U/L Troponin I < 4.0 (0.00-60.4) ng/L NT-Pro-B Natriuret Pep 17 (0-125) pg/mL Total Protein 7.7 (6.4-8.2) g/dL Albumin 4.3 (3.4-5.0) g/dL Imaging Data Attestation: I personally reviewed and interpreted this imaging study as follows: My impression: chest x-ray does not show any infiltrates evidence of CHF. Discharge Plan Discharge Clinical Impression: Atypical chest pain Patient Disposition: Home, Self-Care Condition: Stable Instructions: Antibiotic Form, Chest Pain (ED) Patient Language: Afghan Prescriptions: No Action naloxone [Narcan] 4 mg/actuation spray,non-aerosol 4 mg intranasal Q2M PRN (Reason: opioid overdose) Qty: 2 0RF Rx Instructions: spray 1 dose into ONE nostril; alternate nostrils w each dose until help arrives Follow-up/Referrals: Cintia,SARWAT Pan [Primary Care Provider] - Time of Disposition: 23:29
--- NOTE | 2024-03-25 22:24 | PC.NURSE ---
bedside glucose of 94
[2024-03-25] MEDS: ASPIRIN 81 MG CHEWABLE TABLET 324 MG PO (22:40)
[2024-03-25 22:54] LABS: Basophils Absolute Auto 0.09 K/mm3 (0.00-0.10); Basophils Percent Auto 0.6 % (0.0-1.0); Eosinophils Absolute Auto 0.15 K/mm3 (0.02-0.50); Eosinophils Percent Auto 1.1 % (1.0-6.0); Hematocrit 48.3 % (40.0-54.0); Hemoglobin 16.7 g/dL (14.0-18.0); Immature Granulocyte Absolute 0.06 K/mm3 (0.00-0.00); Immature Granulocyte Percent A 0.4 % (0.0-0.0); Lymphocytes Absolute Auto 3.33 K/mm3 (1.10-4.50); Lymphocytes Percent Auto 23.9 % (18.0-42.0); Mean Corpuscular HGB Conc 34.6 g/dL (32-36); Mean Corpuscular Hemoglobin 30.1 pg (27.0-31.0); Mean Corpuscular Volume 87.2 fL (78.0-102.0); Mean Platelet Volume 11.3 fl (8.7-11.0); Monocytes Absolute Auto 0.66 K/mm3 (0.10-0.90); Monocytes Percent Auto 4.7 % (2.0-11.0); Neutrophils Absolute Auto 9.64 K/mm3 (1.70-7.20); Neutrophils Percent Auto 69.3 % (50.0-70.0); Platelet Count Result 296 K/mm3 (150-420); Red Blood Count 5.54 M/mm3 (4.70-6.10); Red Cell Distribution Width 12.9 % (11.6-14.4); White Blood Count 13.9 K/mm3 (4.8-10.8)
[2024-03-25 23:12] LABS: Lactic Acid Reflex 1.1 mmol/L (0.4-2.0)
[2024-03-25 23:14] LABS: Alanine Aminotransferase 27 U/L (16-63); Albumin Level 4.3 g/dL (3.4-5.0); Alkaline Phosphatase 83 U/L (46-116); Anion Gap 10 mmol/L (4-12); Aspartate Amino Transferase 16 U/L (15-37); Bilirubin,Total 0.6 mg/dL (0.00-1.00); Blood Urea Nitrogen 16 mg/dL (7-18); Calcium 9.6 mg/dL (8.5-10.1); Carbon Dioxide 31 mmol/L (21-32); Chloride 101 mmol/L (98-108); Estimated CRCL calculation 78 ml/min; Estimated Glomerular Filt Rate > 60; Glucose 99 mg/dL (70-99); NT Pro B Type Natriuretic Pept 17 pg/mL (0-125); Osmolality Calculated 295 mOsm/kg (285-295); Potassium 3.2 mmol/L (3.5-5.1); Sodium 142 mmol/L (136-145); Total Protein 7.7 g/dL (6.4-8.2)
[2024-03-25 23:15] LABS: Troponin I < 4.0 ng/L (0.00-60.4)
--- NOTE | 2024-03-25 23:38 | PC.NURSE ---
ERP aware of pt's vitals. No new orders.
--- NOTE | 2024-03-25 23:45 | PC.NURSE ---
Spoke to pt's for an update. Pt gave permission to speak with her.
== END 2024-03-25 23:50 | disposition home or self-care (01) ==
PROVIDERS: Emergency Provider Internal Medicine Critical Care Medicine; PCP Physician Assistant
DX: R07.89 Other chest pain (principal); E11.9 Type 2 diabetes mellitus without complications; Z87.891 Personal history of nicotine dependence
CPT/HCPCS: 36415; 71045; 80053; 83605; 83880; 84484; 85025; 93005; 99284; A9270

== ENCOUNTER 2024-09-27 13:50 | Emergency (ER) | payer OTHER, SELFPAY ==
[2024-09-27 13:51] VITALS: BP 130/89; PULSE 94; RESP 16; TEMP 36.7; O2SAT 96
--- NOTE | 2024-09-27 13:53 | ED_ITS ---
HPI - Extremity Injury (Lower) General Chief Complaint: Extremity Problem,Nontraumatic Stated Complaint: foot pain Time Seen by Provider: 09/27/24 13:53 Source: patient Limitations: no limitations History of Present Illness HPI Narrative: 34-year-old male with a history of smoking, polysubstance abuse presents to the ED with -- blister on his left heel measuring 2 cm -- blister on the palmar surface of the proximal 2nd toe measuring 2 cm is brisk to the painful. The patient has been wearing his shoes and wet socks for hours at a stretch. No history of trauma. Patient denies any fever or chills. He denies any other complaints. He states that his diabetes has resolved according to his primary care physician. Onset (ago): day(s) Relieving factors: nothing Exacerbating factors: nothing Related Data Allergies Allergy/AdvReac Type Severity Reaction Status Date / Time No Known Allergies Allergy Verified 03/25/24 22:24 Review of Systems 2 Review of Systems: All systems reviewed & are unremarkable except as noted in HPI and below Constitutional: Constitutional: Reports as per HPI and Reports no additional constitutional complaints Eyes: Eyes: Reports as per HPI and Reports no additional eye complaints ENT: Reports system reviewed and no additional complaints, except as documented and Reports as per HPI Cardiovascular: Cardiovascular: Reports as per HPI and Reports no additional cardiovascular complaints Respiratory: Respiratory: Reports as per HPI and Reports no additional respiratory complaints Gastrointestinal: Gastrointestinal: Reports as per HPI and Reports no additional gastrointestinal complaints Genitourinary: Genitourinary: Reports no additional male genitourinary complaints and Reports as per HPI Musculoskeletal: Musculoskeletal: Reports no additional musculoskeletal complaints and Reports as per HPI Integumentary/Breasts: Skin/Breast: Reports system reviewed and no additional complaints, except as docu Comments: Blisters both feet Neurologic: Reports system reviewed and no additional complaints, except as documented and Reports as per HPI Psychiatric: Psychiatric: Reports no additional psychiatric complaints and Reports as per HPI Endocrine: Endocrine: Reports no additional endocrine complaints and Reports as per HPI Hematologic/Lymphatic: Hematologic/Lymphatic: Reports no additional hematologic/lymphatic complaints and Reports as per HPI Allergic/Immunologic: Allergic/Immunologic: Reports no additional allergic/immunologic complaints and Reports as per HPI [facility] Past Medical History Medical History Diabetes mellitus Social History Social History Substance use type: marijuana, opiates and methamphetamine Exam 2 Narrative: vitals are stable Const: General: no acute distress Nutritional Appearance: thin O rientation/consciousness: patient oriented x3 Limitations: no limitations HENMT: Head: normal to inspection Ears: external ears normal F imelda/Nose/Sinus: Normal external nose present Face and sinus: normal facial exam Mouth: Yes Normal oral and palatal mucosa present Throat: posterior oropharynx normal Eyes: Conjunctivae: conjunctivae normal Pupils: Equal, round and reactive pupils present EOM: EOMs intact bilaterally Direct Ophthalmoscopy: no photophobia Neck: Neck: normal visual inspection, no lymphadenopathy and no meningeal signs Chest: Chest palpation & inspection: normal inspection of the chest Resp: Effort & Inspection: normal respiratory effort Auscultation: d iminished lung sounds Cardio: Rate: regular rate Rhythm: regular rhythm GI: GI Palp: Yes Soft to palpation Auscultation: normal bowel sounds : General: Yes no CVA tenderness Back/Spine/Pelvis: Back: no CVA tenderness Skin: General skin exam: normal color Rashes: no rashes Wounds: no wounds Neuro: General: patient oriented x3, moves all extremities, no meningeal signs, no focal motor deficits and CN's II-XI intact bilaterally Cranial nerves: Yes Nystagmus not present Speech: normal speech Gait exam (Neuro): Normal gait present Extrem: General: normal to inspection Psych: Mental Status: mental status grossly normal Affect: normal affect Course Course Emergency Course: foot blisters-- blood work is unremarkable. Advised to wear dry socks. Vital Signs Vital signs: Vital Signs Temperature 36.7 C 09/27/24 13:51 Pulse Rate 94 09/27/24 13:51 Respiratory Rate 16 09/27/24 13:51 Blood Pressure 130/89 09/27/24 13:51 Pulse Oximetry 96 09/27/24 13:51 Oxygen Delivery Room Air 09/27/24 13:51 Temperature 36.7 C 09/27/24 13:51 Pulse Rate 94 09/27/24 13:51 Respiratory Rate 16 09/27/24 13:51 Blood Pressure 130/89 09/27/24 13:51 Pulse Oximetry 96 09/27/24 13:51 Oxygen Delivery Room Air 09/27/24 13:51 MDM - Extremity Injury (Lower) MDM Narrative Medical decision making narrative: Foot blisters Differential Diagnosis Differential diagnosis: Likely puncture wound of foot Medical Records Attestation: I reviewed the patient's medical records. Lab Data Attestation: I reviewed the patient's lab results. 09/27/24 14:14 09/27/24 14:14 Labs: Lab Results 09/27/24 Range/Units 14:14 WBC 7.9 (4.8-10.8) K/mm3 RBC 5.35 (4.70-6.10) M/mm3 Hgb 16.2 (14.0-18.0) g/dL Hct 47.6 (40.0-54.0) % MCV 89.0 (78.0-102.0) fL MCH 30.3 (27.0-31.0) pg MCHC 34.0 (32-36) g/dL RDW 13.2 (11.6-14.4) % Plt Count 274 (150-420) K/mm3 MPV 11.4 H (8.7-11.0) fl Immature Gran % (Auto) 0.3 H (0.0-0.0) % Neut % (Auto) 55.5 (50.0-70.0) % Lymph % (Auto) 29.8 (18.0-42.0) % [place] % (Auto) 8.2 (2.0-11.0) % Eos % (Auto) 5.2 (1.0-6.0) % Baso % (Auto) 1.0 (0.0-1.0) % Lymph # (Auto) 2.36 (1.10-4.50) K/mm3 [place] # (Auto) 0.65 (0.10-0.90) K/mm3 Eos # (Auto) 0.41 (0.02-0.50) K/mm3 Baso # (Auto) 0.08 (0.00-0.10) K/mm3 Abs Immat Gran (auto) 0.02 H (0.00-0.00) K/mm3 Absolute Neuts (auto) 4.40 (1.70-7.20) K/mm3 Absolute Nucleated RBC 0.00 (0.00-0.00) K/mm3 Nucleated RBC % 0.0 (0-0.0) % Sodium 140 (137-145) mmol/L Potassium 3.6 (3.4-5.0) mmol/L Chloride 105 (98-107) mmol/L Carbon Dioxide 27 (22-30) mmol/L Anion Gap 8 (4-12) mmol/L BUN 18 (9-20) mg/dL Creatinine 0.98 (0.7-1.3) mg/dL Estim Creat Clear Calc 88 ml/min Estimated GFR > 60 (59 - ) Glucose 103 (65-110) mg/dL Calculated Osmolality 291 (285-295) mOsm/kg Calcium 9.0 (8.4-10.2) mg/dL Total Bilirubin 0.8 (0.2-1.3) mg/dL AST 26 (17-59) U/L ALT 23 (6-50) U/L Alkaline Phosphatase 58 (38-126) U/L Total Protein 7.3 (6.3-8.2) g/dL Albumin 4.4 (3.5-5.1) g/dL Discharge Plan Discharge Clinical Impression: Blister of foot Qualifiers: Encounter type: initial encounter Laterality: unspecified laterality Qualified Code(s): S90.829A - Blister (nonthermal), unspecified foot, initial encounter Patient Disposition: Home Condition: Stable Instructions: Antibiotic Form, Blister (ED) Patient Language: Trinidadian Prescriptions: No Action naloxone [Narcan] 4 mg/actuation spray,non-aerosol 4 mg intranasal Q2M PRN (Reason: opioid overdose) Qty: 2 0RF Rx Instructions: spray 1 dose into ONE nostril; alternate nostrils w each dose until help arrives Follow-up/Referrals: Cintia,SARWAT Pan [Primary Care Provider] - Time of Disposition: 14:51
[2024-09-27 14:19] LABS: Basophils Absolute Auto 0.08 K/mm3 (0.00-0.10); Eosinophils Absolute Auto 0.41 K/mm3 (0.02-0.50); Eosinophils Percent Auto 5.2 % (1.0-6.0); Hematocrit 47.6 % (40.0-54.0); Hemoglobin 16.2 g/dL (14.0-18.0); Immature Granulocyte Absolute 0.02 K/mm3 (0.00-0.00); Immature Granulocyte Percent A 0.3 % (0.0-0.0); Lymphocytes Absolute Auto 2.36 K/mm3 (1.10-4.50); Lymphocytes Percent Auto 29.8 % (18.0-42.0); Mean Corpuscular Hemoglobin 30.3 pg (27.0-31.0); Mean Platelet Volume 11.4 fl (8.7-11.0); Monocytes Absolute Auto 0.65 K/mm3 (0.10-0.90); Monocytes Percent Auto 8.2 % (2.0-11.0); Neutrophils Percent Auto 55.5 % (50.0-70.0); Platelet Count Result 274 K/mm3 (150-420); Red Blood Count 5.35 M/mm3 (4.70-6.10); Red Cell Distribution Width 13.2 % (11.6-14.4); White Blood Count 7.9 K/mm3 (4.8-10.8)
[2024-09-27 14:32] LABS: Alanine Aminotransferase 23 U/L (6-50); Albumin Level 4.4 g/dL (3.5-5.1); Alkaline Phosphatase 58 U/L (38-126); Anion Gap 8 mmol/L (4-12); Aspartate Amino Transferase 26 U/L (17-59); Bilirubin,Total 0.8 mg/dL (0.2-1.3); Blood Urea Nitrogen 18 mg/dL (9-20); Carbon Dioxide 27 mmol/L (22-30); Chloride 105 mmol/L (98-107); Estimated CRCL calculation 88 ml/min; Estimated Glomerular Filt Rate > 60; Glucose 103 mg/dL (65-110); Osmolality Calculated 291 mOsm/kg (285-295); Potassium 3.6 mmol/L (3.4-5.0); Sodium 140 mmol/L (137-145); Total Protein 7.3 g/dL (6.3-8.2)
== END 2024-09-27 15:00 | disposition home or self-care (01) ==
PROVIDERS: Emergency Provider Internal Medicine Critical Care Medicine; PCP Physician Assistant
DX: S90.829A Blister (nonthermal), unspecified foot, initial encounter (principal); E11.9 Type 2 diabetes mellitus without complications; X58.XXXA Exposure to other specified factors, initial encounter
CPT/HCPCS: 36415; 80053; 85025; 99283

== ENCOUNTER 2025-01-18 18:45 | Emergency (ER) | payer OTHER, SELFPAY ==
[2025-01-18 18:45] VITALS: BP 149/77; PULSE 70; RESP 18; TEMP 36.9; O2SAT 98
--- NOTE | 2025-01-18 18:56 | ED_ITS ---
HPI - Dental/Oral General Chief complaint: Dental/Oral Stated complaint: dental pain Time Seen by Provider: 01/18/25 18:54 Source: patient Mode of arrival: ambulatory Limitations: no limitations History of Present Illness HPI Narrative: this is a 34-year-old male with history of tooth decay and has a crock 2 with surrounding gum inflammation with no fever chills has submandibular gland inflammation on the left with no shortness of breath no audible wheezing MD Complaint: tooth pain Teeth map: 2 1. cracked tooth with surrounding gum inflammation Onset (ago): day(s) Duration: constant Severity: moderate Severity scale (1-10): 6 Related Data Allergies Allergy/AdvReac Type Severity Reaction Status Date / Time No Known Allergies Allergy Verified 01/18/25 18:49 Review of Systems 2 Review of Systems: All systems reviewed & are unremarkable except as noted in HPI and below PMFSH Past Medical History Medical History Diabetes mellitus Social History Social History Substance use type: marijuana, opiates and methamphetamine Exam 2 Const: General: healthy appearing Nutritional Appearance: well nourished Orientation/consciousness: patient oriented x3 Limitations: no limitations Eyes: Conjunctivae: conjunctivae normal Pupils: Equal, round and reactive pupils present EOM: EOMs intact bilaterally Chest: Chest palpation & inspection: normal inspection of the chest Resp: Effort & Inspection: normal respiratory effort Auscultation: clear to auscultation bilaterally Cardio: Rate: regular rate Rhythm: regular rhythm GI: GI Palp: Yes Soft to palpation Auscultation: normal bowel sounds Neuro: General: patient oriented x3 and moves all extremities Course Course Emergency Course: with a dental pain will give a dose of Toradol p.o. amoxicillin. Vital Signs Vital signs: Vital Signs Temperature 36.9 C 01/18/25 18:45 Pulse Rate 70 01/18/25 18:45 Respiratory Rate 18 01/18/25 18:45 Blood Pressure 149/77 H 01/18/25 18:45 Pulse Oximetry 98 01/18/25 18:45 Oxygen Delivery Room Air 01/18/25 18:45 Temperature 36.9 C 01/18/25 18:45 Pulse Rate 70 01/18/25 18:45 Respiratory Rate 18 01/18/25 18:45 Blood Pressure 149/77 H 01/18/25 18:45 Pulse Oximetry 98 01/18/25 18:45 Oxygen Delivery Room Air 01/18/25 18:45 Critical Care Time Critical Care Time Critical Care Time: No Discharge Plan Discharge Clinical Impression: Toothache, Dental caries, Dental abscess Patient Disposition: Home Condition: Stable Instructions: Antibiotic Form, Dental Abscess (ED), Toothache (ED) Additional Instructions: Advised to take medication as prescribed and follow with primary if symptoms persist or worsen. Patient Language: Kiswahili Prescriptions: New naproxen 500 mg tablet 500 mg PO BID PRN (Reason: pain) Qty: 14 0RF amoxicillin 500 mg tablet 500 mg PO TID Qty: 30 0RF No Action naloxone [Narcan] 4 mg/actuation spray,non-aerosol 4 mg intranasal Q2M PRN (Reason: opioid overdose) Qty: 2 0RF Rx Instructions: spray 1 dose into ONE nostril; alternate nostrils w each dose until help arrives Follow-up/Referrals: Cintia,SARWAT Pan [Primary Care Provider] Stand Alone Forms: Work/School Release IP Time of Disposition: 18:59
[2025-01-18] MEDS: KETOROLAC 10 MG TABLET PO (18:58)
[2025-01-18] MEDS: AMOXICILLIN 500 MG CAPSULE PO (19:01)
[2025-01-18 19:07] VITALS: BP 149/77; PULSE 70; RESP 18; TEMP 36.9; O2SAT 98
== END 2025-01-18 19:07 | disposition home or self-care (01) ==
LOC: CHSED 19:10
PROVIDERS: Emergency Provider Emergency Medicine; PCP Physician Assistant
DX: K02.9 Dental caries, unspecified (principal); K04.7 Periapical abscess without sinus; E11.9 Type 2 diabetes mellitus without complications
CPT/HCPCS: 99283; A9270